=== PATIENT | female | born 1975 | race Caucasian/White ===

== ENCOUNTER 2018-06-09 12:12 | Day surgery (SDC) | payer MEDICARE, MEDICAID ==
[~2018-06-09 12:12] MED LIST: ACETAMINOPHEN 1,000 MG/100 ML BTL IV ONE; CEFAZOLIN 2 Gram 2 GM/50 ML BAG IVPB ONE
[2018-06-09] MEDS ORDERED: METHYLPREDNISOLONE 40MG/VIAL IM ONE (12:13)
[2018-06-09] MEDS ORDERED: PROPOFOL 10 MG/ML VIAL IV ONE (12:13)
[2018-06-09] MEDS ORDERED: FENTANYL PF 100MCG/2ML VIAL IV ONE (12:13)
[2018-06-09] MEDS ORDERED: ONDANSETRON HCL IV 4 MG/2 ML VIAL IVP ONE (12:13)
[2018-06-09] MEDS ORDERED: SEVOFLURANE 250 ML INH ONE (12:13)
[2018-06-09] MEDS ORDERED: LIDOCAINE 2% MDV (20MG/ML) 20ML VIAL IV ONE (12:13)
[2018-06-09] MEDS ORDERED: DIPHENHYDRAMINE HCL 50 MG/ML VIAL IVP ONE (12:13)
[2018-06-09 14:21] LABS: BLOOD UREA NITROGEN 9 mg/dL (6-20); CREATININE 0.5 mg/dL (0.5-0.9); EST GLOMERULAR FILTRATION RATE > 60 mL/min; GLUCOSE,RANDOM 140 mg/dL (74-109)
[2018-06-09] MEDS ORDERED: MORPHINE SULFATE 4 MG/ML VIAL ONE (16:40)
--- NOTE | 2018-06-12 15:43 | Operative Note ---
DATE: 06/09/2018. PREOPERATIVE DIAGNOSIS: INTERNAL DERANGEMENT OF THE LEFT KNEE. POSTOPERATIVE DIAGNOSES: 1. GRADE 3 CHONDROMALACIA OF THE MEDIAL FEMORAL CONDYLE. 2. TEAR OF THE ANTERIOR HORN OF THE MEDIAL MENISCUS. PROCEDURES: 1. Left knee arthroscopy with partial medial meniscectomy. 2. Left knee arthroscopy with chondroplasty of the medial femoral condyle. STAFF SURGEON: Param Trejo M.D. ANESTHESIA: General. PREPARATION: ChloraPrep. INDIVIDUAL CONSIDERATIONS: None. PROCEDURE: The patient was taken to the operating room and placed supine on the operating table. She had successful induction of a general anesthetic. Her left lower extremity was prepped and draped in the usual fashion. The patient had a superolateral inflow cannula placed. The skin had been infiltrated with 0.5% Marcaine with epinephrine prior. A clear effusion was drained and the knee was inflated with normal saline. An inferomedial and an inferolateral portal were made in a similar fashion. The arthroscope was introduced through the inferolateral portal up into the pouch. The patellofemoral joint was normal. There was incidental note made of medial plica which was resected. No loose bodies were seen in either the gutter or the pouch. In the medial compartment she had a small anterior horn tear measuring about 1.0 cm. This was a flap which was impinging. This was debrided back with a shaver. The remainder of the meniscus was intact. The tibial plateau looked good. She had grade 3 change essentially on the medial femoral condyle which was smoothed with a shaver. In the notch, the cruciates were normal, and the lateral compartment structures were basically normal. The knee was then irrigated out with saline. The portals were closed with mary, and 20 mL of 0.5% Marcaine with epinephrine along with 80 mg of Depo Medrol and 4.0 mg of morphine were injected into the knee. A sterile Bulkee compressive dressing was applied. The patient tolerated the procedures well. Needle and sponge counts were correct. Estimated blood loss was minimal. She was taken back to Recovery in good condition. There were no complications. Job Number: [id number] [facility]
== END 2018-06-09 18:12 | disposition home or self-care (01) ==
LOC: SUR 12:12
PROVIDERS: ATTEND Orthopaedic Surgery
DX: S83.242A Other tear of medial meniscus, current injury, left knee, initial encounter (principal)
CPT/HCPCS: 29881; 01400; 80048; J2405; J3010; J0690; J2270; J1030; J1200